=== PATIENT | female | born 1945 | race Native Hawaiian/Other Pacific Islander ===

== ENCOUNTER 2016-12-09 20:13 | Emergency (ER) | payer SELFPAY ==
[2016-12-09] MEDS ORDERED: TYLENOL ONE (20:53)
[2016-12-09] MEDS ORDERED: TYLENOL PO ONE (20:55)
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
[2016-12-10] MEDS ORDERED: MORPHINE IM ONE (00:47)
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
[2016-12-10] MEDS ORDERED: ZOFRAN ODT PO ONE (01:14)
[2016-12-10 04:37] VITALS: BP 123/71
== END 2016-12-10 04:35 | disposition home or self-care (01) ==
LOC: ED 20:13
DX: S42.351A Displaced comminuted fracture of shaft of humerus, right arm, initial encounter for closed fracture (principal); I10 Essential (primary) hypertension; Z87.891 Personal history of nicotine dependence; V49.3XXA Car occupant (driver) (passenger) injured in unspecified nontraffic accident, initial encounter; Y92.488 Other paved roadways as the place of occurrence of the external cause; Y93.89 Activity, other specified; Y99.8 Other external cause status
CPT/HCPCS: 29105; 73030; 73060; 96372; 99283; J2270; Q0162